=== PATIENT | male | born 1965 | race Caucasian/White ===

== ENCOUNTER 2025-06-04 16:29 | Emergency (ER) | payer OTHER, SELFPAY ==
[2025-06-04 16:36] VITALS: BP 158/112
[2025-06-04 16:59] LABS: Hematocrit 38.4 % (39.0-52.0); Hemoglobin 13.2 g/dL (13.0-18.0); Mean Corp Hgb Conc. 34.4 g/dL (33.0-37.0); Mean Corpuscular Volume 89.3 fL (80.0-94.0); Nucleated Red Blood Cells % 0 % (-); Platelet Count 214 10^3/uL (130-400); Red Cell Dist. Width 12.2 % (11.5-14.5)
[2025-06-04 17:21] LABS: ALT (SGPT) 24 U/L (0-50); AST (SGOT) 25 U/L (17-59); Albumin 4.7 g/dl (3.5-5.0); Alkaline Phosphatase 61 U/L (38-126); Blood Urea Nitrogen 15 mg/dl (9-20); Calcium 9.0 mg/dl (8.4-10.2); Carbon Dioxide 26 mmol/L (22-30); Chloride 108 mmol/L (98-107); Glucose 93 mg/dl (70-99); Potassium 4.4 mmol/L (3.5-5.1); Sodium 141 mmol/L (135-145); Total Protein 7.7 g/dl (6.3-8.2); eGFR > 60.00
[2025-06-04 18:00] VITALS: BP 148/95
--- NOTE | 2025-06-04 19:34 | ED.GENMED ---
History of Present Illness
General
Chief Complaint: Heart Rate Problem
Source: patient
Exam Limitations: none
Time Seen by Provider: 06/04/25 17:53
Nursing documentation reviewed up to this point in time: agreed with
History of Present Illness
History of Present Illness:
60-year-old male without significant past medical history presenting to the emergency department with irregular heartbeat palpitations over the past 6 months or so. Went to the primary care doctor was found to be in atrial fibrillation today. Was
sent to the ER for further assessment. He denies any chest pain shortness of breath or any symptoms significant symptoms otherwise. Does take aspirin daily.
Past History
Past History
ED Past Medical History: None
ED Past Surgical History: Other
Social History
Tobacco: Non-smoker
Review of Systems
Review of Systems
Allergies reviewed?: Yes
All Other Systems: ROS reviewed and negative except as documented in HPI and ROS
Phy Exam
Physical Exam
Physical Exam:
GENERAL: Alert , in no apparent distress
EYE: pupils equal and reactive
NECK: Supple, no significant adenopathy.
ENT: o/p clr, mmm.
CARDIAC: Irregularly irregular rate and rhythm .
LUNGS: Clear breath sounds bilaterally, no acute respiratory distress, no wheezes/rales/rhonchi
ABDOMEN: Soft, without focal tenderness, no r/g, no cvat
NEUROLOGICAL: Alert and oriented, no focal neuro deficits
SKIN: Warm and dry, skin intact.
MUSCULOSKELETAL: No edema, well perfused.
PSYCH: Normal and appropriate interaction.
Course
Orders/Labs/Results
Orders:
Orders
06/04/25 16:30
EKG [Electrocardiogram (*1)] Urgent
Reason for Study: Tachycardia
EKG- Treatment ONCE
06/04/25 16:46
Complete Blood Count/With Diff Urgent
Comprehensive Metabolic Panel Urgent
06/04/25 19:34
Metoprolol Xl [Toprol Xl] 12.5 mg PO NOW STA
06/04/25 19:35
Apixaban [Eliquis] 5 mg PO ONCE ONE
Abnormal Lab Results
06/04/25
16:46
RBC 4.30 L 10^6/uL
(4.70-6.10)
Hct 38.4 L %
(39.0-52.0)
MPV 10.9 H fL
(7.4-10.4)
Chloride 108 H mmol/L
(98-107)
06/04/25 16:46
06/04/25 16:46
Vital Signs
Initial and Last Documented VS:
Initial Vital Signs
Temp Pulse Resp BP Pulse Ox
98.3 F 89 18 158/112 98
06/04/25 16:36 06/04/25 16:36 06/04/25 16:36 06/04/25 16:36 06/04/25 16:36
Last Documented Vital Signs
Temp Pulse Resp BP Pulse Ox
98.3 F 83 14 148/95 100
06/04/25 16:36 06/04/25 18:30 06/04/25 18:30 06/04/25 18:00 06/04/25 19:34
MDM/Problems Addressed
MDM/Problems Addressed:
60-year-old male presenting to the emergency department with new onset atrial fibrillation. On arrival here heart rates controlled in the 80s blood pressure in the 140s over 90s. Patient no distress. Denies any specific chest pain shortness of
breath. Has had intermittent palpitations for about 6 months. Patient found to be in atrial fibrillation without signs of any emergent complication. No signs of stroke or clot related complication. Case was discussed with cardiology recommending
anticoagulant as well as daily Lopressor otherwise will follow-up closely with cardiology but stable for outpatient management. Return precautions given.
*Pulse Oximetry
SaO2: 100
Oxygen Mode of Delivery: Room air
Patient hypoxic: no (100)
*Critical Care Note
Total Time (30-74mins, 75-104mins- exclusive of procedures): Not Applicable
ED Attending Note
-
Portions of this chart may have been created with voice recognition software.� Occasional wrong word or��sound alike� substitutions may have occurred due to the inherent limitations of voice recognition software.
Discharge Plan
Departure
Patient Disposition: Home (Routine Discharge)
Date of Disposition: 06/04/25
Time of Disposition: 19:41
Patient with high blood pressure during this ER visit?: Yes
Condition: Good
Covid-19: Not Applicable
Discharge Problem:
Atrial fibrillation
Instructions: Atrial Fibrillation (DC), BLOOD PRESSURE
Prescriptions:
New
Eliquis 5 mg tablet
5 mg PO BID 30 Days Qty: 60 0RF
metoprolol succinate 25 mg tablet extended release 24 hr
12.5 mg PO DAILY 30 Days Qty: 15 0RF
No Action
ondansetron [Zofran ODT] 8 MG tablet,disintegrating
8 mg PO TID PRN (Reason: nausea/vomiting) Qty: 20 0RF
amoxicillin-pot clavulanate 1 TABLET tablet
1 tab PO BID Qty: 10 0RF
oxycodone 5 MG tablet
5 mg PO Q4HPRN PRN (Reason: pain) Qty: 10 0RF
docusate sodium 100 MG capsule
100 mg PO BID Qty: 14 0RF
Referrals:
Yang Jiang MD [Active, Cardiology] - Follow up in 5-7 days
Gerardo Loo MD [Family Provider, Family Practice]
Activity Restrictions/Additional Instructions:
You came to the emergency department today with concerns of new onset atrial fibrillation. Please take prescribed Eliquis 5 mg twice daily as well as the metoprolol once daily. Please follow closely with cardiology for further management. Return
for any worsening, new or concerning symptoms.
Interventions
Interventions:
*Risk Screen - Suicide Last Done: 06/04/25 16:36
*General Assessment Last Done: 06/04/25 16:36
*Neglect/Abuse Screening Last Done: 06/04/25 16:36
ED- Cardiac Assessment Last Done: 06/04/25 18:00
ED- Pulmonary Assessment Last Done: 06/04/25 18:00
Discharge Date and Time
Print Language: YI
[2025-06-04] MEDS: ELIQUIS 5 MG PO (19:37)
[2025-06-04] MEDS: TOPROL XL 12.5 MG PO (19:56)
== END 2025-06-04 20:10 | disposition home or self-care (01) ==
LOC: EMR 16:29
PROVIDERS: Emergency Medicine; EMERGENCY PHYSICIAN Emergency Medicine; FAMILY PHYSICIAN Family Medicine
DX: I48.91 Unspecified atrial fibrillation (principal); R03.0 Elevated blood-pressure reading, without diagnosis of hypertension; F41.9 Anxiety disorder, unspecified; Z79.82 Long term (current) use of aspirin
CPT/HCPCS: 99283; 80053; 85025; 93005

== ENCOUNTER → 2025-07-15 09:41 | Day surgery (SDC) | payer OTHER, SELFPAY ==
--- NOTE | 2025-07-15 19:27 | ITS.CL.CARDI ---
Probation Worker - Cardioversion
Cardioversion
Procedure Report:
Date of Procedure: 07/15/25
Procedure: Cardioversion
Indication: Symptomatic atrial fibrillation
Performing Physician: Thelma Leyva DO [facility]
Technique: The patient was brought to the holding area. Signed informed consent was obtained. A time out was called and performed. The patient was anesthetized by the anesthesia service. Anticoagulation status was reviewed and appropriate. R2 pads
were placed anteriorly and posteriorly. A 200 J synchronized biphasic shock restored normal sinus rhythm without significant bradycardia. There were no complications.
Conclusion: Uncomplicated cardioversion from atrial fibrillation to sinus rhythm.
Recommendation: Routine post cardioversion care. Continue chcf anticoagulation.
== END ==
LOC: CATH 09:41
PROVIDERS: ATTENDING PHYSICIAN Internal Medicine Cardiovascular Disease; FAMILY PHYSICIAN Family Medicine; OTHER PHYSICIAN Internal Medicine Cardiovascular Disease
DX: I48.91 Unspecified atrial fibrillation (principal); Z79.01 Long term (current) use of anticoagulants; I45.10 Unspecified right bundle-branch block; F41.9 Anxiety disorder, unspecified; Z79.899 Other long term (current) drug therapy
CPT/HCPCS: 92960; 93005

== ENCOUNTER → 2025-07-18 10:08 | Outpatient (REF) | payer OTHER, SELFPAY | LOC: HWRCS 10:08 | PROVIDERS: ATTENDING PHYSICIAN Internal Medicine Cardiovascular Disease; FAMILY PHYSICIAN Family Medicine | DX: I48.91 Unspecified atrial fibrillation (principal); I45.10 Unspecified right bundle-branch block | CPT/HCPCS: 93306 ==